=== PATIENT | female | born 1980 ===

== ENCOUNTER 2018-01-03 11:21 | Emergency (ER) | payer MEDICAID ==
[2018-01-03 11:31] VITALS: RESP 18; TEMP 98.2; O2SAT 98; BMI 31.1
--- NOTE | 2018-01-03 11:41 | ED PDOC ---
Arrival/HPI - General Chief Complaint: Back Pain Time Seen by Provider: 01/03/18 11:30 Historian: Patient - History of Present Illness Narrative History of Present Illness (Text): 01/03/18 11:37 37yo female with no PMhx who present with 5days history of lower back pain. Notes that pain started after doing laundry. Pain is described as sharp and crampy. Pain is worse with flexion and when she turns to her side while laying down. Notes that she that she took Aleve last night with some relieve. Denies focal weakness, trauma, urinary/fecal incontinence, saddle anesthesia, abdominal pain, urinary symptoms, any other complaint. Past Medical History - Provider Review Nursing Documentation Reviewed: Yes - Psychiatric Hx Substance Use: No - Surgical History Hx Appendectomy: Yes - Anesthesia Hx Anesthesia: Yes Hx Anesthesia Reactions: No Hx Malignant Hyperthermia: No Family/Social History - Physician Review Nursing Documentation Reviewed: Yes Family/Social History: Unknown Family HX Smoking Status: Light Smoker < 10 Cigarettes Daily Hx Alcohol Use: No Hx Substance Use: No Allergies/Home Meds Allergies/Adverse Reactions: Allergies No Known Allergies Allergy (Verified 01/03/18 11:31) Review of Systems - Physician Review All systems were reviewed & negative as marked: Yes - Review of Systems Constitutional: Normal Eyes: Normal ENT: Normal Respiratory: Normal Cardiovascular: Normal Gastrointestinal: Normal Genitourinary Female: Normal Musculoskeletal: Back Pain Skin: Normal Neurological: Normal Endocrine: Normal Hemo/Lymphatic: Normal Psychiatric: Normal Physical Exam Vital Signs Reviewed: Yes Vital Signs Temp Pulse Resp BP Pulse Ox 01/03/18 12:21 86 18 131/86 98 01/03/18 11:25 98.2 F 98 H 18 133/95 H 98 Temperature: Afebrile Blood Pressure: Normal Pulse: Regular Respiratory Rate: Normal Appearance: Positive for: Well-Appearing, Non-Toxic, Comfortable Pain Distress: None Mental Status: Positive for: Alert and Oriented X 3 - Systems Exam Head: Present: Atraumatic, Normocephalic Pupils: Present: PERRL Extroacular Muscles: Present: EOMI Conjunctiva: Present: Normal Mouth: Present: Moist Mucous Membranes Neck: Present: Normal Range of Motion Respiratory/Chest: Present: Clear to Auscultation, Good Air Exchange. No: Respiratory Distress, Accessory Muscle Use Cardiovascular: Present: Regular Rate and Rhythm, Normal S1, S2. No: Murmurs Abdomen: Present: Normal Bowel Sounds. No: Tenderness, Distention, Peritoneal Signs Back: Present: Pain with Leg Raise (B/L). No: Midline Tenderness, Paraspinal Tenderness Upper Extremity: Present: Normal Inspection. No: Cyanosis, Edema Lower Extremity: Present: Normal Inspection. No: Edema Neurological: Present: GCS=15, CN II-XII Intact, Speech Normal Skin: Present: Warm, Dry, Normal Color. No: Rashes Psychiatric: Present: Alert, Oriented x 3, Normal Insight, Normal Concentration Medical Decision Making ED Course and Treatment: 01/03/18 18:19 Pt is comfortable in ED. Ambulatory and have no focal neurological deficit. UA show trace leuk without WBC. She doesn't have any UTI symptom and will not be treated at this time. Her pain improved in ED with medication. LS xray - No acute finding. Result was DW the pt and she was DC home with Naprosyn and flexeril. Referred to her PMD. - Lab Interpretations Lab Results: Lab Results 01/03/18 11:39: Urine Color Straw, Urine Appearance Clear, Urine pH 6.0, Ur Specific Hilliard <= 1.005, Urine Protein Negative, Urine Glucose (UA) Negative, Urine Ketones Negative, Urine Blood Negative, Urine Nitrate Negative, Urine Bilirubin Negative, Urine Urobilinogen 0.2, Ur Leukocyte Esterase Trace H, Urine RBC 0 - 2, Urine WBC 2 - 5, Ur Epithelial Cells 3 - 4, Urine Bacteria Mod - RAD Interpretation Radiology Orders: 01/03/18 11:36 LS SPINE WITH OBL > 18 YRS OLD [RAD] Stat - Medication Orders Current Medication Orders: Discontinued Medications Cyclobenzaprine HCl (Flexeril) 10 mg PO STAT STA Stop: 01/03/18 11:38 Last Admin: 01/03/18 11:50 Dose: 10 mg Ketorolac Tromethamine (Toradol) 60 mg IM STAT STA Stop: 01/03/18 11:37 Last Admin: 01/03/18 11:50 Dose: 60 mg MAR Pain Assessment Document 01/03/18 11:50 HI (Rec: 01/03/18 12:15 HI [id number]) Pain Reassessment Is this a pain reassessment? No Sleep Is patient sleeping during reassessment? No Presence of Pain Presence of Pain Yes Location Upper or Lower Lower Pain Location Body Site Back Description Description Constant Intensity of Pain at present 7 Acceptable Level of Pain 2 IM Administration Charges Document 01/03/18 11:50 HI (Rec: 01/03/18 12:15 HI [id number]) Injection Site MAR Injection Site Left Gluteus Deangelo Charges for Administration # of IM Administrations 1 Disposition/Present on Arrival - Present on Arrival Any Indicators Present on Arrival: No History of DVT/PE: No History of Uncontrolled Diabetes: No Urinary Catheter: No History of Decub. Ulcer: No History Surgical Site Infection Following: None - Disposition Have Diagnosis and Disposition been Completed?: Yes Diagnosis: Back pain Disposition: HOME/ ROUTINE Disposition Time: 12:40 Patient Plan: Discharge Condition: STABLE Discharge Instructions (ExitCare): Low Back Pain in Adults Additional Instructions: Follow up with your doctor Apply warm compress/shower to area Return to ED for any new symptoms Prescriptions: Cyclobenzaprine [Cyclobenzaprine HCl] 10 mg PO TID #12 tab Naproxen [Naprosyn] 500 mg PO BID #20 tablet Referrals: Silver Martin MD [Primary Care Provider] - Follow up with primary Forms: [employer] (Malay)
[2018-01-03 12:03] LABS: URINE BILIRUBIN NEGATIVE (NEGATIVE); URINE BLOOD NEGATIVE (NEGATIVE); URINE GLUCOSE (UA) NEGATIVE (NEGATIVE); URINE LEUKOCYTE ESTERASE TRACE Leu/uL (NEGATIVE); URINE PROTEIN NEGATIVE mg/dL (<30 mg/dL); URINE UROBILINOGEN 0.2 E.U./dL (<1 E.U./dL)
[2018-01-03 12:04] LABS: URINE APPEARANCE CLEAR (CLEAR); URINE COLOR STRAW (YELLOW)
[2018-01-03 12:16] LABS: URINE RBC 0 - 2 /hpf (0-2)
[2018-01-03 12:17] LABS: URINE BACTERIA MOD (NEG)
--- NOTE | 2018-01-03 12:25 | RAD ---
PROCEDURE: Radiographs of the Lumbar Spine. HISTORY: [facility] pain COMPARISON: No prior. FINDINGS: BONES: Normal alignment. No listhesis. No fracture. DISC SPACES: Unremarkable. OTHER FINDINGS: None. IMPRESSION: Unremarkable radiographs of the lumbar spine.
[2018-01-03 12:28] VITALS: BP 131/86; PULSE 86
== END 2018-01-03 12:52 | disposition home or self-care (01) ==
LOC: ED 11:21
DX: M54.5 Low back pain (principal)
CPT/HCPCS: 72110; 81001; 87086; 96372; 99283; J1885